=== PATIENT | female | born 1970 | race Caucasian/White ===

== ENCOUNTER 2022-04-26 07:50 | Outpatient (CLI) | payer BC | END 2022-04-26 07:51 | disposition home or self-care (01) | LOC: BICULT 07:50 | PROVIDERS: ATTEND Student in an Organized Health Care Education/Training Program | DX: N63.20 Unspecified lump in the left breast, unspecified quadrant (principal); N60.02 Solitary cyst of left breast ==

== ENCOUNTER 2025-03-07 10:32 | Outpatient (CLI) | payer BC | END 2025-03-07 10:33 | disposition home or self-care (01) | LOC: SCSMRI 10:32 | PROVIDERS: ATTEND Family Medicine Sports Medicine | DX: M47.22 Other spondylosis with radiculopathy, cervical region (principal); M48.02 Spinal stenosis, cervical region; M47.812 Spondylosis without myelopathy or radiculopathy, cervical region | CPT/HCPCS: 72141 ==